=== PATIENT | male | born 1965 | race Caucasian/White ===

== ENCOUNTER 2021-09-12 00:09 | Emergency (ER) | payer SELFPAY ==
[~2021-09-12] VITALS: Ht 167.6 cm; Wt 73.0 kg
[2021-09-12] MEDS ORDERED: ACETAMINOPHEN 325MG TABLET PO ONE (01:00)
[2021-09-12] MEDS ORDERED: IBUPROFEN 600MG TABLET PO ONE (01:15)
[2021-09-12 05:11] VITALS: BP 122/80
== END 2021-09-12 01:30 | disposition home or self-care (01) ==
LOC: ER 00:09 → EDBD 00:09 → ER 01:30
DX: M54.9 Dorsalgia, unspecified (principal); G89.29 Other chronic pain; F10.129 Alcohol abuse with intoxication, unspecified; Y90.9 Presence of alcohol in blood, level not specified
CPT/HCPCS: 99283